=== PATIENT | female | born 1965 | race Caucasian/White ===

== ENCOUNTER 2020-02-15 12:24 | Outpatient (CLI) | payer OTHER ==
--- NOTE | 2020-02-15 12:53 | RAD ---
EXAM: Chest 2 views: HISTORY: Cough for 4 weeks COMPARISON: 08/16/2013 FINDINGS: There is a normal-sized cardiomediastinal silhouette. There is stable scarring above both hemidiaphr agms. There is no evidence of consolidation, mass, or pleural effusion. No acute osseous abnormality. There is a gastric band at the gastroesophageal junction. IMPRESSION: No evidence of acute cardiopulmonary disease
== END 2020-02-15 12:25 | disposition home or self-care (01) ==
LOC: BICRAD 12:24
PROVIDERS: ATTEND Nurse Practitioner Family
DX: R05 Cough (principal); J40 Bronchitis, not specified as acute or chronic; J06.9 Acute upper respiratory infection, unspecified
CPT/HCPCS: 71046

== ENCOUNTER 2021-03-24 08:08 | Outpatient (CLI) | payer OTHER ==
[2021-03-24 09:15] LABS: #Basophils 0.1 10x3/uL (0.0-0.2); #Eosinphils 0.1 10x3/uL (0.0-0.5); #Monocytes 0.7 10x3/uL (0.0-1.1); #Neutrophils 6.8 10x3/uL (1.5-8.4); %Basophils 0.8 % (0.0-2.0); %Eosinophils 1.3 % (0.0-6.0); %Lymphocytes 20.1 % (18.0-47.0); %Monocytes 7.4 % (0.0-10.0); Mean Corpuscular HGB CONC 32.5 g/dL (32.0-36.0); Mean Corpuscular Hemoglobin 30.9 pg (27.0-33.0); Mean Corpuscular Volume 95.1 fl (81.6-98.3); Platelet Count 302 10x3/uL (150-450); RBC Distribution Width 12.9 % (11.5-14.5); Red Blood Cell (RBC) Count 4.53 10x6/uL (3.90-5.03); White Blood Cell (WBC) Count 9.8 10x3/uL (3.5-10.5)
[2021-03-24 10:05] LABS: Anion Gap 13 mmol/L (10-20); BUN (Urea Nitrogen) 18 mg/dL (9.8-20.1); Carbon Dioxide 26 mmol/L (22-29); Chloride 107 mmol/L (98-107); Potassium 4.9 mmol/L (3.5-5.1); Sodium 141 mmol/L (136-145)
[2021-03-24 10:06] LABS: ALT (SGPT) 18 U/L (8-55); AST (SGOT) 19 U/L (5-34); Albumin 4.3 g/dL (3.5-5.0); Alkaline Phosphatase 89 U/L (40-110); Bilirubin, Total 0.3 mg/dL (0.2-1.2); Calc. Creatinine Clearance 0 mL/min (70-130); Glucose 94 mg/dL (70-105); Protein, Total 7.3 g/dL (6.0-8.3)
[2021-03-24 12:23] LABS: Hemoglobin A1c 5.2 % (4.0-6.0)
[2021-03-24 15:08] LABS: SARS-CoV-2 PCR by NAA Not Detected (NotDetected)
== END 2021-03-24 08:09 | disposition home or self-care (01) ==
LOC: LABBT 08:08
PROVIDERS: ATTEND Surgery
DX: Z01.818 Encounter for other preprocedural examination (principal); Z20.822 Contact with and (suspected) exposure to COVID-19
CPT/HCPCS: 71046; 80053; 83036; 85025; 93005; 93010; U0003; U0005

== ENCOUNTER 2021-03-26 06:05 | Day surgery (SDC) | payer OTHER ==
[2021-03-24 12:39] VITALS: BMI 22.8
[2021-03-26] MEDS ORDERED: Fentanyl 100 MCG/2 ML VIAL ONE ×2 (06:50→08:45)
[2021-03-26] MEDS ORDERED: Bupivacaine 0.25% 10 ML VIAL ONE (06:55)
[2021-03-26] MEDS ORDERED: Famotidine/PF 20 mg/2ml Vial ONE (07:07)
[2021-03-26] MEDS ORDERED: Midazolam HCl 2 mg/2 ml Vial ONE (07:07)
[2021-03-26] MEDS ORDERED: ceFAZolin 2 GM/DEX 5% 100 ML BAG ONE (07:34)
[2021-03-26] MEDS ORDERED: Glycopyrrolate 0.2 MG/ML 5 ML SYRINGE ONE (07:41)
[2021-03-26] MEDS ORDERED: Lidocaine 1% PF 5 ML VIAL ONE (07:41)
[2021-03-26] MEDS ORDERED: Dexamethasone 20 MG/5 ML VIAL ONE (07:41)
[2021-03-26] MEDS ORDERED: PROPOFOL 200 MG/20 ML VIAL ONE (07:41)
[2021-03-26] MEDS ORDERED: Rocuronium Bromide 10 MG/ML (10ML VIAL) ONE (07:41)
[2021-03-26] MEDS ORDERED: Ondansetron PF 4 MG/2 ML Vial ONE (07:41)
[2021-03-26] MEDS ORDERED: HYDROcodone/Acetaminophen 5/325 mg Tablet ONE (09:41)
== END 2021-03-26 11:00 | disposition home or self-care (01) ==
LOC: SDC 06:05
PROVIDERS: ATTEND Surgery
PROC: 0DP64CZ Removal of Extraluminal Device from Stomach, Percutaneous Endoscopic Approach (ICD-10-PCS; principal; 2021-03-26)
DX: K22.0 Achalasia of cardia (principal); K21.9 Gastro-esophageal reflux disease without esophagitis; E07.9 Disorder of thyroid, unspecified; Z79.899 Other long term (current) drug therapy
CPT/HCPCS: J1100; J2250; J2405; J2704; J3010; S0020; S0028

== ENCOUNTER 2024-03-23 09:32 | Outpatient (CLI) | payer OTHER | END 2024-03-23 09:33 | disposition home or self-care (01) | LOC: BICMRI 09:32 | PROVIDERS: ATTEND Obstetrics & Gynecology | DX: Z01.89 Encounter for other specified special examinations (principal); Z80.3 Family history of malignant neoplasm of breast | CPT/HCPCS: A9577; C8908 ==

== ENCOUNTER 2024-05-01 15:00 | Inpatient (IN) | payer OTHER ==
[2024-05-03] MEDS ORDERED: CEFAZOLIN 2 GM VIAL ONE (06:08)
[2024-05-03] MEDS ORDERED: Heparin 5,000 UNITS/ML VIAL ONE (06:08)
[2024-05-03] MEDS ORDERED: Ketorolac Tromethamine 30 MG (1 mL) VIAL ONE (06:08)
[2024-05-03] MEDS ORDERED: Acetaminophen 500 MG TAB ONE (06:08)
[2024-05-03] MEDS ORDERED: EPINEPHrine 1 MG/ML VIAL ONE (06:37)
[2024-05-03] MEDS ORDERED: Bupivacaine 0.25% HCL 30 ML VIAL ONE (06:38)
[2024-05-03] MEDS ORDERED: fentaNYL PF 100 MCG/2 ML SYRINGE ONE ×3 (07:00→10:10)
[2024-05-03] MEDS ORDERED: PROPOFOL 20 ML ONE (07:01)
[2024-05-03] MEDS ORDERED: Midazolam HCl 2 mg/2 ml Vial ONE (07:01)
[2024-05-03] MEDS ORDERED: Lidocaine 1% PF 5 ML VIAL ONE (07:35)
[2024-05-03] MEDS ORDERED: Rocuronium Bromide 10 MG/ML (10ML VIAL) ONE (09:18)
[2024-05-03] MEDS ORDERED: SUGAMMADEX SODIUM 200 MG/2 ML VIAL ONE ×2 (09:18→09:19)
[2024-05-03] MEDS ORDERED: Dexamethasone 20 MG/5 ML VIAL ONE (09:24)
[2024-05-03] MEDS ORDERED: Ondansetron PF 4 MG/2 ML Vial ONE (09:24)
[2024-05-03] MEDS ORDERED: hydrALAZINE 20 MG/ML VIAL SLOW IVP PRN (09:34)
[2024-05-03] MEDS ORDERED: Ondansetron PF 4 MG/2 ML Vial IVP PRN ×2 (09:34→11:00)
[2024-05-03] MEDS ORDERED: Promethazine HCl 25 MG/ML VIAL IM PRN ×2 (09:34→11:00)
[2024-05-03] MEDS ORDERED: Dextrose 50% Abboject 50 ML SYRINGE SLOW IVP PRN (09:34)
[2024-05-03] MEDS ORDERED: diphenhydrAMINE 50 MG/ML VIAL IVP PRN (09:34)
[2024-05-03] MEDS ORDERED: Ipratropium/Albuterol 3 ML NEB NEB PRN (09:34)
[2024-05-03] MEDS ORDERED: Glucagon 1 MG/ML KIT IM PRN (09:34)
[2024-05-03] MEDS ORDERED: Dextrose 5% in Water 1,000 ML IV PRN (09:34)
[2024-05-03] MEDS ORDERED: HYDROmorphone 0.5 MG/0.5 ML SYRINGE ONE (09:54)
[2024-05-03] MEDS ORDERED: Promethazine HCl 25 MG/ML VIAL ONE (10:10)
[2024-05-03] MEDS ORDERED: Fentanyl CADD 100 ML IVPB SCH (11:00)
[2024-05-03] MEDS ORDERED: Naloxone HCl 0.4 mg/ml Vial IV PRN (11:00)
[2024-05-03] MEDS ORDERED: diphenhydrAMINE 50 MG/ML VIAL IM/IV PRN (11:00)
[2024-05-03] MEDS ORDERED: diphenhydrAMINE 25 MG CAP PO PRN (11:00)
[2024-05-03 12:09] VITALS: BMI 34.4
[2024-05-03] MEDS: Ketorolac Tromethamine 30 MG (1 mL) VIAL IVP SCH (14:07)
[2024-05-03] MEDS: D5 1/2 NS w/20 mEq KCL 1,000 ML IV SCH (14:07)
[2024-05-04 06:38] LABS: #Basophils 0.08 10x3/uL (0.0-0.2); %Basophils 0.7 % (0.0-1.0); %Eosinophils 1.8 % (0.0-10.0); %Lymphocytes 21.1 % (21.0-51.0); %Monocytes 9.1 % (0.0-10.0); %Neutrophils 66.9 % (42.0-75.0); Hematocrit 37.1 % (36.0-47.0); Hemoglobin 12.3 g/dL (12.0-16.0); Mean Corpuscular HGB CONC 33.2 g/dL (32.0-36.0); Mean Corpuscular Hemoglobin 30.5 pg (27.0-31.0); Mean Corpuscular Volume 92.1 fL (78.0-98.0); Mean Platelet Volume 11.5 fL (7.4-10.4); Platelet Count 276 10x3/uL (130-400); Red Blood Cell (RBC) Count 4.03 mill/uL (4.20-5.40)
[2024-05-04 06:51] VITALS: TEMP 98.2
[2024-05-04 07:02] LABS: Anion Gap 13 mmol/L (10-20); BUN (Urea Nitrogen) 11 mg/dL (9.8-20.1); Calc. Creatinine Clearance 131 mL/min (70-130); Calcium 8.2 mg/dL (7.8-10.44); Carbon Dioxide 23 mmol/L (22-29); Chloride 108 mmol/L (98-107); Estimated GFR 96; Glucose 90 mg/dL (70-105); Potassium 3.8 mmol/L (3.5-5.1); Sodium 140 mmol/L (136-145)
[2024-05-04 08:38] VITALS: BP 108/72
[2024-05-04] MEDS: Enoxaparin 40 MG (0.4 mL) SYRINGE SC SCH (09:14)
[2024-05-04] MEDS: Pantoprazole 40 MG VIAL IVP SCH (09:14)
== END 2024-05-04 10:08 | disposition home or self-care (01) | DRG 621 ==
LOC: SURG A 05-03 05:46
PROVIDERS: ADMIT Surgery; ATTEND Surgery
PROC: 0DB64Z3 Excision of Stomach, Percutaneous Endoscopic Approach, Vertical (ICD-10-PCS; principal; 2024-05-03)
PROC: 8E0W4CZ Robotic Assisted Procedure of Trunk Region, Percutaneous Endoscopic Approach (ICD-10-PCS; 2024-05-03)
PROC: 3E033XZ Introduction of Vasopressor into Peripheral Vein, Percutaneous Approach (ICD-10-PCS; 2024-05-03)
DX: E66.01 Morbid (severe) obesity due to excess calories (principal); K44.9 Diaphragmatic hernia without obstruction or gangrene; K66.0 Peritoneal adhesions (postprocedural) (postinfection)
CPT/HCPCS: 36415; 80048; 85025; 88307; C1889; J0171; J0665; J1100; J1171; J1644; J1650; J1885; J2250; J2405; J2550; J2704; J3480; J7042; S2900